=== PATIENT | female | born 1945 | race Caucasian/White ===

== ENCOUNTER 2023-11-28 05:55 | Inpatient (IN) | payer OTHER, SELFPAY ==
[2023-11-20 10:15] LABS: Hematocrit 39.8 % (37.0-47.0); Hemoglobin 13.9 g/dL (12.0-16.0); Mean Corp Hgb Conc. 34.9 g/dL (33.0-37.0); Mean Corpuscular Volume 88.8 fL (81.0-99.0); Mean Platelet Volume 10.6 fL (7.4-10.4); Platelet Count 247 10^3/uL (130-400); Red Blood Cell Count 4.48 10^6/uL (4.20-5.40); Red Cell Dist. Width 12.9 % (11.5-14.5)
[2023-11-20 11:14] LABS: ALT (SGPT) 23 U/L (0-35); AST (SGOT) 26 U/L (14-36); Albumin 4.3 g/dl (3.5-5.0); Alkaline Phosphatase 78 U/L (38-126); Blood Urea Nitrogen 10 mg/dl (7-17); Calcium 9.5 mg/dl (8.4-10.2); Carbon Dioxide 24 mmol/L (22-30); Chloride 96 mmol/L (98-107); Glucose 93 mg/dl (70-99); Potassium 4.6 mmol/L (3.5-5.1); Sodium 130 mmol/L (135-145); Total Bilirubin 0.8 mg/dl (0.2-1.3); Total Protein 7.1 g/dl (6.3-8.2); eGFR > 60.00
[2023-11-20 12:45] VITALS: BMI 26.0
[2023-11-20 13:16] LABS: Glycohemoglobin (HgbA1c) 6.1 % (4.0-5.6)
[2023-11-28] VITALS (14 sets, daily range): BP systolic 135–166; BP diastolic 56–94; BMI 26.0
[2023-11-28] MEDS: HEPARIN 5000 UNITS SC (06:25)
[2023-11-28] MEDS: TYLENOL 1000 MG PO (06:25)
[2023-11-28] MEDS: ENTEREG 12 MG PO (06:25)
[2023-11-28] MEDS: NORMOSOL-R 1000 IV ×2 (06:51→16:02)
--- NOTE | 2023-11-28 14:16 | W.IMMPOSTOP ---
Surgical Immed Post Op Note
-
Primary Surgeon: Yosi Tong MD
Adolfo Courtney MD
Assistants: NORMA Ceron and Kayce Katz PA-C
Pre-op Diagnosis: Colovaginal fistula
Post-op Diagnosis: Same
Procedure Performed: Cystoscopy with bilateral ureteral stents with ICG, Robotic low anterior resection with diverting loop ileostsomy
Anesthesia Type: GET
Specimen / Cultures: Rectum (suture is distal)
Estimated Blood Loss: 50cc
Complications: None
Operative Findings: Colovaginal fistula from previous anastomosis
Primary repair of vaginal cuff
28mm EEA
Normal leak test
Diverting loop ileostomy
Patient's updated.
[2023-11-28] MEDS: INVANZ IV (14:54)
[2023-11-28] MEDS: TORADOL 15 MG IV ×2 (15:03→21:43)
[2023-11-28] MEDS: DILAUDID 0.25 MG IV (15:40)
--- NOTE | 2023-11-28 16:15 | PTCARENOTE ---
Patient received from PACU in bed; Surgical site assessed with FIRST COAT OPERATOR, 4 lap sites AMPOULE FILLER AND SEALER with glue; Ileostomy site assessed, stoma pink with sanguineous output; Graham in place; Patient and spouse oriented to room and unit, call rosen use; Call rosen
within reach; Bed in lowest position, wheels locked; Assessment ongoing
[2023-11-28] MEDS: TYLENOL PO (17:24)
[2023-11-28] MEDS: TYLENOL 650 MG PO (19:43)
[2023-11-28] MEDS: INDERAL 20 MG PO (19:43)
[2023-11-28] MEDS: LIPITOR 10 MG PO (21:43)
[2023-11-29] MEDS: TYLENOL PO ×2 (01:15→23:56)
[2023-11-29] MEDS: NORMOSOL-R 1000 IV ×3 (02:00→19:56)
[2023-11-29] MEDS: TYLENOL 650 MG PO ×5 (03:03→19:56)
[2023-11-29] MEDS: TORADOL 15 MG IV ×4 (03:03→21:30)
[2023-11-29 03:30] VITALS: BP 143/79
[2023-11-29 06:21] LABS: % Basophils 0.6 % (0-2); % Eosinophils 0.9 % (0-6); % Immature Granulocytes 0.5 % (0-0.5); % Lymphocytes 10.1 % (20.5-51.1); % Neutrophils 81.9 % (42.2-75.2); Absolute Basophils 0.1 10^3/uL (0-0.2); Absolute Eosinophils 0.1 10^3/uL (0-0.7); Absolute Immature Granulocytes 0.1 10^3/uL (0-0.05); Absolute Lymphocytes 1.3 10^3/uL (1.2-3.4); Absolute Monocytes 0.8 10^3/uL (0.1-0.6); Absolute Neutrophils 10.6 10^3/uL (1.4-6.5); Hemoglobin 10.5 g/dL (12.0-16.0); Mean Corp Hgb Conc. 37.5 g/dL (33.0-37.0); Mean Corpuscular Hgb 31.5 pg (27.0-31.0); Mean Corpuscular Volume 84.1 fL (81.0-99.0); Nucleated Red Blood Cells % 0 %; Red Blood Cell Count 3.33 10^6/uL (4.20-5.40)
[2023-11-29 06:47] LABS: Blood Urea Nitrogen 16 mg/dl (7-17); Calcium 7.7 mg/dl (8.4-10.2); Carbon Dioxide 20 mmol/L (22-30); Chloride 101 mmol/L (98-107); Estimated Creatinine Clearance 53 ml/min; Glucose 130 mg/dl (70-99); Potassium 3.3 mmol/L (3.5-5.1); Sodium 130 mmol/L (135-145); eGFR > 60.00
[2023-11-29 06:51] LABS: Absolute Neutrophils -Man Diff 11.3 10^3/uL (1.4-6.5); Band Neutrophils 30 % (0-3); Lymphocytes 10 % (20-51); Mean Platelet Volume 10.6 fL (7.4-10.4); Monocytes 3 % (2-9); Normal RBC Morphology Yes; Platelet Count 231 10^3/uL (130-400); Platelets Checked Yes; Segmented Neutrophils 57 % (42-75); Total Cells Counted 100; Toxic Granulation 1+
[2023-11-29 07:08] VITALS: BP 130/51
[2023-11-29] MEDS: KCL IV (07:45)
[2023-11-29] MEDS: ENTEREG PO (08:11)
[2023-11-29] MEDS: INDERAL 20 MG PO ×2 (08:11→19:56)
[2023-11-29] MEDS: INVANZ IV (08:16)
[2023-11-29] MEDS: INVANZ 60 MG IV (09:04)
[2023-11-29] MEDS: KCL 270 MEQ IV (09:37)
[2023-11-29] MEDS: ENTEREG 12 MG PO ×2 (09:38→19:56)
--- NOTE | 2023-11-29 11:02 | CM ---
Patient seen bedside, initial assessment completed. Patient reports she resides with her in a two story home, no steps to enter. Patient reports having a stair climb, walker, and cane. Patient reports history with [facility], denies SNF.
Patient confirms PCP Zandra Farah, pharmacy [facility] [place]. CM will continue to follow for discharge planning needs.
Plan; home no needs vs VN.
[2023-11-29 12:00] VITALS: BP 116/57
--- NOTE | 2023-11-29 12:08 | W.PN.CRS1 ---
Today's Communication / Plan
-
Clear liquids
Pain control
Mobilize patient
Assessment/Plan
-
77 yo female presenting for management of colovaginal fistula now POD #1 Robotic LAR, resection and closure of original ostomy with diverting loop ileostomy
AFVSS
Mild acute blood loss anemia secondary to expected intraop losses with component of hemodilution
Hypokalemia
Stent removed at bedside, crow remains in place
-H/H this afternoon with bmp/cbc in am
-Start clear liquids
-Stoma/wound nurse consult
-Pain management with scheduled tylenol/toradol and prn dilaudid
-OOB/Ambulate. IS while awake
-Both stents now out. Continue crow, VT in am
-SCD's for vte ppx. Will start lovenox 40mg sq daily if h/h remains stable this afternoon
Subjective Data
Procedure
11/28/23
1. Cystoscopy, bilateral ureteral stents and ICG by Dr. Courtney.
2. Resection and closure of ileostomy.
3. Robotic low anterior resection with intracorporeal anastomosis.
4. Diverting loop ileostomy.
�
Subjective Data
Date of Service: November 29, 2023
Patient seen and examined at bedside with Dr Tong. Denies n/v. Denies pain. Not yet passing flatus.
Objective Data
-
Vital Signs
Temp Pulse Resp BP Pulse Ox
99.1 F 80 16 130/51 95
11/29/23 07:08 11/29/23 08:11 11/29/23 07:08 11/29/23 08:11 11/29/23 07:08
Intake & Output
11/28/23 11/29/23 11/30/23
06:59 06:59 06:59
Intake Total 1650 / 1650
Output Total 985 / 985
Balance 665 / 665
Intake:
IV fluids (Total) 1650 / 1650
Normosol 150 / 150
Output:
Urine, Crow 925 / 925
Urine, Voided 60 / 60
Lab Results
11/29/23 05:07
Physical Exam
-
General: No Acute Distress
HEENT: Grossly Normal
Abdomen: Soft, Non Distended, Tender (minimal to incision), No Bowel Movement (stoma pink/viable. bowel sweat/minimal ssf in ostomy appliance) and Other (crow with tea colored urine, removed stent)
Skin: Warm
Incision: Clear, Dry, Intact (glue intact)
[2023-11-29 13:51] LABS: Hematocrit 27.2 % (37.0-47.0)
[2023-11-29 15:58] VITALS: BP 127/53
[2023-11-29] MEDS: ZOFRAN 4 MG IV (16:42)
[2023-11-29] MEDS: LOVENOX 40 MG SC (17:16)
--- NOTE | 2023-11-29 20:30 | PTCARENOTE ---
pt vomited moderate amount of green liquid. had immediate relief of any prior acid reflux symptoms or nausea afterwards. patient cleaned up and returned back to bed. resting comfortably and denied need for any other medications or interventions at
this time.
[2023-11-29] MEDS: LIPITOR PO (21:33)
[2023-11-29 23:10] VITALS: BP 120/56
[2023-11-29 23:58] VITALS: BP 120/56
[2023-11-30] MEDS: ZOFRAN 4 MG IV ×4 (01:04→19:55)
--- NOTE | 2023-11-30 02:25 | PTCARENOTE ---
Addendum entered by Yanet Blackwell RN 11/30/23 02:37:
patient's abdomen is soft, round, bowel sounds present in all quadrants, R side hypo active. small amount of bloody drainage present in ileostomy bag. patient has only sipped on about 200 ml water since beginning of mold shifter but states she had 2
cups tea, broth and water during the day. pt currently resting comfortably in bed with no c/o of nausea now and no pain.
Original Note:
patient c/o of acid reflux again at 0100, HOB and patient given IV zofran. At 0220 patient woke from sleep and vomited green liquid again, 450 ml.
[2023-11-30] MEDS: TORADOL 15 MG IV ×3 (03:10→21:39)
[2023-11-30] MEDS: TYLENOL PO ×5 (04:20→19:58)
[2023-11-30 06:37] LABS: Hematocrit 24.6 % (37.0-47.0); Hemoglobin 8.8 g/dL (12.0-16.0); Mean Corp Hgb Conc. 35.8 g/dL (33.0-37.0); Mean Corpuscular Hgb 31.4 pg (27.0-31.0); Mean Corpuscular Volume 87.9 fL (81.0-99.0); Mean Platelet Volume 10.4 fL (7.4-10.4); Platelet Count 206 10^3/uL (130-400); Red Cell Dist. Width 13.1 % (11.5-14.5); White Blood Cell Count 13.5 10^3/uL (4.8-10.8)
[2023-11-30 06:57] LABS: Blood Urea Nitrogen 18 mg/dl (7-17); Calcium 8.1 mg/dl (8.4-10.2); Carbon Dioxide 30 mmol/L (22-30); Chloride 96 mmol/L (98-107); Glucose 120 mg/dl (70-99); Magnesium 1.9 mg/dl (1.6-2.3); Potassium 3.4 mmol/L (3.5-5.1); Sodium 130 mmol/L (135-145)
[2023-11-30 07:02] LABS: Estimated Creatinine Clearance 62 ml/min; eGFR > 60.00
[2023-11-30 07:10] VITALS: BP 132/57
[2023-11-30] MEDS: INVANZ 60 MG IV (08:15)
[2023-11-30] MEDS: TORADOL IV (08:16)
[2023-11-30] MEDS: ENTEREG 12 MG PO ×2 (08:19→19:54)
[2023-11-30] MEDS: INDERAL 20 MG PO ×2 (08:19→19:55)
[2023-11-30] MEDS: NORMOSOL-R 1000 IV (10:51)
--- NOTE | 2023-11-30 11:10 | W.PN.CRS1 ---
Today's Communication / Plan
-
potassium rider
protonix
back down to npo with chips
recheck h/h later
Assessment/Plan
-
POD #2�Robotic LAR, resection and closure of original ostomy with diverting loop ileostomy
1. Hgb 8.8 from 10.0 - trend. Repeat later today. WBC 13.5 from 13.0, trend. On Invanz.
2. Vitals normal.
3. Back diet down to NPO with chips.
4. Hypokalemia with K of 3.4. Replete.
5. OOB as tolerated.
6. Wound RN for stoma teaching.
7. Pain medication: Tylenol/Toradol standing, Dilaudid PRN.
8. Voiding post crow removal.
9. DVT prophylaxis: Lovenox 40mg sq daily, TEDS/SCDS.
10. Add protonix IV for acid reflux.
11. OR pathology pending.
Subjective Data
Procedure
11/28/23
1. Cystoscopy, bilateral ureteral stents and ICG by Dr. Courtney.
2. Resection and closure of ileostomy.
3. Robotic low anterior resection with intracorporeal anastomosis.
4. Diverting loop ileostomy.
�
Subjective Data
Date of Service: November 30, 2023
Patient states she had a 'bad night'. She was nauseous and then vomited after drinking some donis all. She has not had any bowel movements yet. She has acid reflux.
Objective Data
-
Vital Signs
Temp Pulse Resp BP Pulse Ox
99.5 F 83 18 132/57 95
11/30/23 07:10 11/30/23 07:10 11/30/23 07:10 11/30/23 07:10 11/30/23 08:00
Intake & Output
11/29/23 11/30/23 12/01/23
06:59 06:59 06:59
Intake Total 1650 / 1650 2620 / 2620
Output Total 985 / 985 1300 / 1300
Balance 665 / 665 1320 / 1320
Intake:
Oral fluids 1260 / 1260
IV fluids (Total) 1650 / 1650 1360 / 1360
Normosol 150 / 150
Output:
Emesis 450 / 450
Urine, Crow 925 / 925 850 / 850
Urine, Voided 60 / 60
Other:
Number of immeasurable emeses? 1
Number of unmeasured liquid
stools
Ileostomy 50
Lab Results
11/30/23 05:10
11/30/23 05:10
Physical Exam
-
General: No Acute Distress and AOx3
Abdomen: Soft, Non Distended, Non Tender and Other (ileostomy warm and pink)
Skin: Warm and Dry
[2023-11-30] MEDS: COMPAZINE 5 MG PO ×3 (11:48→23:09)
[2023-11-30] MEDS: NSS 1000 IV (11:50)
[2023-11-30] MEDS: NSS (PRESERVATIVE FREE) 10 ML IV (11:53)
[2023-11-30] MEDS: KCL 160 MEQ IV (11:54)
[2023-11-30] MEDS: PROTONIX IV 40 MG IV (11:54)
[2023-11-30 13:16] LABS: Hematocrit 25.3 % (37.0-47.0); Hemoglobin 8.9 g/dL (12.0-16.0)
[2023-11-30 15:10] VITALS: BP 127/55
[2023-11-30] MEDS: LOVENOX 40 MG SC (17:11)
[2023-11-30] MEDS: DILAUDID 0.5 MG IV (19:54)
[2023-11-30] MEDS: LIPITOR PO (21:39)
[2023-11-30 22:58] VITALS: BP 137/59
[2023-12-01] MEDS: TYLENOL PO ×7 (00:14→23:16)
--- NOTE | 2023-12-01 01:30 | PTCARENOTE ---
pt ileostomy is having green drainage. ostomy dressing intact.
[2023-12-01] MEDS: NSS 1000 IV ×2 (03:17→22:25)
[2023-12-01] MEDS: ZOFRAN 4 MG IV (03:18)
[2023-12-01] MEDS: TORADOL 15 MG IV ×4 (03:18→20:41)
[2023-12-01 05:16] LABS: % Basophils 0.2 % (0-2); % Eosinophils 0.3 % (0-6); % Immature Granulocytes 1.2 % (0-0.5); % Lymphocytes 11.6 % (20.5-51.1); % Neutrophils 80.7 % (42.2-75.2); Absolute Immature Granulocytes 0.1 10^3/uL (0-0.05); Absolute Lymphocytes 1.4 10^3/uL (1.2-3.4); Absolute Monocytes 0.7 10^3/uL (0.1-0.6); Absolute Neutrophils 9.6 10^3/uL (1.4-6.5); Hematocrit 23.7 % (37.0-47.0); Hemoglobin 8.3 g/dL (12.0-16.0); Mean Corpuscular Volume 88.4 fL (81.0-99.0); Mean Platelet Volume 10.4 fL (7.4-10.4); Nucleated Red Blood Cells % 0 %; Platelet Count 176 10^3/uL (130-400); Red Blood Cell Count 2.68 10^6/uL (4.20-5.40); Red Cell Dist. Width 12.9 % (11.5-14.5); White Blood Cell Count 11.9 10^3/uL (4.8-10.8)
[2023-12-01 05:42] LABS: Blood Urea Nitrogen 11 mg/dl (7-17); Calcium 8.1 mg/dl (8.4-10.2); Carbon Dioxide 27 mmol/L (22-30); Chloride 100 mmol/L (98-107); Estimated Creatinine Clearance 61 ml/min; Glucose 98 mg/dl (70-99); Potassium 2.9 mmol/L (3.5-5.1); Sodium 133 mmol/L (135-145); eGFR > 60.00
[2023-12-01] MEDS: COMPAZINE 5 MG PO (05:59)
[2023-12-01] MEDS: DILAUDID 0.5 MG IV (06:43)
[2023-12-01 07:10] VITALS: BP 144/63
[2023-12-01] MEDS: KCL 270 MEQ IV (07:53)
[2023-12-01] MEDS: NSS (PRESERVATIVE FREE) 10 ML IV (08:11)
[2023-12-01] MEDS: PROTONIX IV 40 MG IV (08:11)
[2023-12-01] MEDS: ENTEREG 12 MG PO ×2 (08:12→19:40)
[2023-12-01] MEDS: INDERAL 20 MG PO ×2 (08:12→19:40)
--- NOTE | 2023-12-01 11:13 | W.PN.CRS1 ---
Today's Communication / Plan
-
Advance diet
Replete potassium, recheck BMP later
Assessment/Plan
-
POD #3�Robotic LAR, resection and closure of original ostomy with diverting loop ileostomy
1. Hgb 8.3 from 8.9- trend. WBC 11.9 from 13.5, trend. On Invanz.
2. Vitals normal.
3. Advance diet to clears. Okay for fulls later today if tolerates clears.
4. Hypokalemia with K of 2.9. Replete. Will recheck BMP later today.
5. OOB as tolerated.
6. Wound RN for stoma teaching.
7. Pain medication: Tylenol/Toradol standing, Dilaudid PRN.
8. DVT prophylaxis: Lovenox 40mg sq daily, TEDS/SCDS.
9. On Protonix IV for acid reflux.
10. OR pathology pending.
11. Holding Eliquis for now
Subjective Data
Procedure
11/28/23
1. Cystoscopy, bilateral ureteral stents and ICG by Dr. Courtney.
2. Resection and closure of ileostomy.
3. Robotic low anterior resection with intracorporeal anastomosis.
4. Diverting loop ileostomy.
�
Subjective Data
Date of Service: December 01, 2023
Patient states she has no nausea or vomiting. She feels thirsty. She is having some gas pain. She is urinating without difficulty. She has some scant output from her ileostomy.
Objective Data
-
Vital Signs
Temp Pulse Resp BP Pulse Ox
97.5 F 70 18 144/63 96
12/01/23 07:10 12/01/23 07:10 12/01/23 07:10 12/01/23 07:10 12/01/23 07:10
Intake & Output
11/30/23 12/01/23 12/02/23
06:59 06:59 06:59
Intake Total 2620 / 2620 2009
Output Total 1300 / 1300 695 / 695
Balance 1320 / 1320 1315 / 1315
Intake:
Oral fluids 1260 / 1260 30 / 30
IV fluids (Total) 1360 / 1360 1760 / 1760
IV piggybacks 220 / 220
Output:
Emesis 450 / 450
Liquid stool amount 225 / 225
Ileostomy 225 / 225
Urine, Graham 850 / 850
Urine, Voided 470 / 470
Other:
Number of approximated MODERATE 3
amounts of urine
Number of immeasurable emeses? 1
Number of unmeasured liquid
stools
Ileostomy 50
Lab Results
12/01/23 04:42
Physical Exam
-
General: No Acute Distress and AOx3
Abdomen: Soft, Non Distended, Non Tender and Other (Ileostomy warm and pink with serous output)
Skin: Warm and Dry
Incision: Clear, Dry, Intact
--- NOTE | 2023-12-01 11:22 | WOUNDNOTE ---
ROLO RN NOTE: S/P Repair of Colovaginal fistula from previous ileostomy anastomosis. Patient known to service, last seen 03/24/23 after original ileostomy, see computer for complete history. RLQ new loop ileostomy, stoma pink with intact bridge, no
leakage from appliance. Using Asmita 2 piece with 2 3/4' flat wafer and high output pouch. Patient reports she is independent with care of ostomy, called to bring in supplies. Instructed patient to ask staff for assistance if having
difficulty navigating around bridge. Nurse Darlin made aware of the above and that pouch change is due either later today or tomorrow. Patient able to turn to sides, sacrum and heels are intact. Patient states she gets up and ambulates on own. Will
update care plan and follow as needed.
[2023-12-01 15:05] VITALS: BP 130/54
--- NOTE | 2023-12-01 16:15 | CM ---
Resection and closure of original ostomy with diverting loop ileostomy. Clear liquids. Will await therapy evaluation for discharge plan of care.
[2023-12-01 16:40] LABS: Blood Urea Nitrogen 11 mg/dl (7-17); Calcium 8.2 mg/dl (8.4-10.2); Carbon Dioxide 26 mmol/L (22-30); Chloride 101 mmol/L (98-107); Estimated Creatinine Clearance 61 ml/min; Glucose 119 mg/dl (70-99); Potassium 3.4 mmol/L (3.5-5.1); Sodium 131 mmol/L (135-145); eGFR > 60.00
[2023-12-01] MEDS: LOVENOX 40 MG SC (17:19)
[2023-12-01] MEDS: TYLENOL 650 MG PO (19:39)
[2023-12-01] MEDS: LIPITOR PO ×2 (20:41→23:00)
[2023-12-01 23:07] VITALS: BP 137/51
[2023-12-02] MEDS: DILAUDID 0.5 MG IV ×2 (00:17→21:44)
[2023-12-02] MEDS: TYLENOL PO ×4 (03:15→17:00)
[2023-12-02] MEDS: TORADOL 15 MG IV ×4 (03:15→21:44)
[2023-12-02 05:11] VITALS: BMI 26.7
[2023-12-02 05:58] LABS: Hematocrit 23.9 % (37.0-47.0); Hemoglobin 8.4 g/dL (12.0-16.0); Mean Corp Hgb Conc. 35.1 g/dL (33.0-37.0); Mean Corpuscular Hgb 31.5 pg (27.0-31.0); Mean Corpuscular Volume 89.5 fL (81.0-99.0); Mean Platelet Volume 10.4 fL (7.4-10.4); Platelet Count 204 10^3/uL (130-400); Red Blood Cell Count 2.67 10^6/uL (4.20-5.40); Red Cell Dist. Width 12.8 % (11.5-14.5); White Blood Cell Count 11.5 10^3/uL (4.8-10.8)
[2023-12-02 06:29] LABS: Blood Urea Nitrogen 10 mg/dl (7-17); Calcium 8.1 mg/dl (8.4-10.2); Carbon Dioxide 24 mmol/L (22-30); Chloride 97 mmol/L (98-107); Estimated Creatinine Clearance 69 ml/min; Glucose 87 mg/dl (70-99); Potassium 2.9 mmol/L (3.5-5.1); Sodium 131 mmol/L (135-145); eGFR > 60.00
[2023-12-02 07:44] VITALS: BP 140/54
[2023-12-02] MEDS: KCL 270 MEQ IV (08:58)
[2023-12-02] MEDS: ENTEREG 12 MG PO ×2 (08:59→20:30)
[2023-12-02] MEDS: PROTONIX IV 40 MG IV (08:59)
[2023-12-02] MEDS: TYLENOL 650 MG PO ×2 (08:59→20:29)
[2023-12-02] MEDS: INDERAL 20 MG PO ×2 (08:59→20:30)
[2023-12-02] MEDS: NSS (PRESERVATIVE FREE) 10 ML IV (08:59)
[2023-12-02] MEDS: FLUSH (NSS) 2 FLUSH IV ×2 (09:00→17:02)
--- NOTE | 2023-12-02 10:48 | W.PN.CRS1 ---
Addendum entered and electronically signed by Chuy Bobby MD 12/02/23 10:57:
I saw and examined the patient.
The PA's note was reviewed and I agree with the note.
Comment:
Seen earlier with PA.
No complaints. Tolerating fulls.
Vitals ok. Hg 8.4. K 2.9.
Abdominal incisions fine.
Diet advanced.
OOB.
Replace K.
Original Note:
Today's Communication / Plan
-
low residue diet
Assessment/Plan
-
POD #4�Robotic LAR, resection and closure of original ostomy with diverting loop ileostomy
1. Hgb 8.4- trend. WBC 11.5, monitor.
2. Vitals normal.
3. Advance diet to low residue.
4. Hypokalemia with K of 2.9. Replete.
5. OOB as tolerated.
6. Wound RN for stoma teaching.
7. Pain medication: Tylenol/Toradol standing, Dilaudid PRN.
8. DVT prophylaxis: Lovenox 40mg sq daily, TEDS/SCDS.
9. On Protonix IV for acid reflux.
10. OR pathology pending.
Subjective Data
Procedure
11/28/23
1. Cystoscopy, bilateral ureteral stents and ICG by Dr. Courtney.
2. Resection and closure of ileostomy.
3. Robotic low anterior resection with intracorporeal anastomosis.
4. Diverting loop ileostomy.
�
Subjective Data
Date of Service: December 02, 2023
Patient states she has flatus. She has no abdominal pain. She is hungry. She has no complaints.
Objective Data
-
Vital Signs
Temp Pulse Resp BP Pulse Ox
98.8 F 78 18 140/54 98
03/26/24 07:44 12/02/23 07:44 12/02/23 07:44 12/02/23 07:44 12/02/23 07:44
Intake & Output
12/01/23 12/02/23 12/03/23
06:59 06:59 06:59
Intake Total 2009 3890 / 3890
Output Total 695 / 695
Balance 1315 / 1315 3890 / 3890
Intake:
Oral fluids 30 / 30 2340 / 2340
IV fluids (Total) 1760 / 1760 1280 / 1280
IV piggybacks 220 / 220 270 / 270
Output:
Liquid stool amount 225 / 225
Ileostomy 225 / 225
Urine, Voided 470 / 470
Other:
Number of approximated MODERATE 3 5
amounts of urine
Lab Results
12/02/23 04:50
12/02/23 04:50
Physical Exam
-
General: No Acute Distress and AOx3
Abdomen: Soft, Non Distended and Non Tender
Wound: No Signs of Infection
Incision: Clear, Dry, Intact
--- NOTE | 2023-12-02 12:06 | CM ---
Patient seen bedside.
Patient had Jing in the past.
Patient denies VN needs at this time.
Per patient she is able to care for her colostomy and is ambulating independently.
IMM completed.
Spouse will transport.
Plan: home no needs.
[2023-12-02 15:21] VITALS: BP 146/69
[2023-12-02] MEDS: LOVENOX 40 MG SC (17:01)
[2023-12-02] MEDS: LIPITOR 10 MG PO (21:43)
[2023-12-02 23:15] VITALS: BP 128/57
[2023-12-03] MEDS: TYLENOL PO ×3 (00:33→08:40)
[2023-12-03] MEDS: TORADOL 15 MG IV ×2 (03:41→08:39)
[2023-12-03 04:05] VITALS: BMI 26.5
[2023-12-03] MEDS: DILAUDID 0.5 MG IV (04:36)
[2023-12-03 07:46] VITALS: BP 133/58
[2023-12-03 08:23] LABS: Blood Urea Nitrogen 9 mg/dl (7-17); Calcium 8.1 mg/dl (8.4-10.2); Carbon Dioxide 26 mmol/L (22-30); Chloride 100 mmol/L (98-107); Estimated Creatinine Clearance 61 ml/min; Glucose 116 mg/dl (70-99); Sodium 129 mmol/L (135-145); eGFR > 60.00
[2023-12-03] MEDS: INDERAL 20 MG PO (08:38)
[2023-12-03] MEDS: ENTEREG 12 MG PO (08:38)
[2023-12-03] MEDS: NSS (PRESERVATIVE FREE) 10 ML IV (08:39)
[2023-12-03] MEDS: PROTONIX IV 40 MG IV (08:39)
--- NOTE | 2023-12-03 09:15 | W.PN.CRS1 ---
Today's Communication / Plan
-
discharge
Assessment/Plan
-
POD #5�Robotic LAR, resection and closure of original ostomy with diverting loop ileostomy
1. K+ is 3.0 this morning. Will replete with 40meq po x 1.
2. Vitals normal.
3. Tolerating a low residue diet.
4. OOB as tolerated.
5. Wound RN for stoma teaching.
6. Pain medication: Tylenol/Toradol standing, Dilaudid PRN.
7. DVT prophylaxis: Lovenox 40mg sq daily, TEDS/SCDS.
8. On Protonix IV for acid reflux.
9. OR pathology pending.
10. Okay for discharge today after K+ is given. Discharge instructions discussed with patient including medications, activity levels, and follow up. All questions answered.
Subjective Data
Procedure
11/28/23
1. Cystoscopy, bilateral ureteral stents and ICG by Dr. Courtney.
2. Resection and closure of ileostomy.
3. Robotic low anterior resection with intracorporeal anastomosis.
4. Diverting loop ileostomy.
�
Subjective Data
Date of Service: December 03, 2023
Patient states she feels well. She is tolerating a diet. She has bowel function. She is managing with her colostomy. She denies pain.
Objective Data
-
Vital Signs
Temp Pulse Resp BP Pulse Ox
98.2 F 69 17 133/58 97
12/03/23 07:46 12/03/23 07:46 12/03/23 07:46 12/03/23 07:46 12/03/23 07:46
Intake & Output
12/02/23 12/03/23 12/04/23
06:59 06:59 06:59
Intake Total 3890 / 3890 1710 / 1710
Output Total 100 / 100
Balance 3890 / 3890 1610 / 1610
Intake:
Oral fluids 2340 / 2340 1440 / 1440
IV fluids (Total) 1280 / 1280 0 / 0
IV piggybacks 270 / 270 270 / 270
Output:
Liquid stool amount 100 / 100
Ileostomy 100 / 100
Other:
Number of approximated MODERATE 5 2
amounts of urine
Lab Results
12/02/23 04:50
12/03/23 07:48
Physical Exam
-
General: No Acute Distress and AOx3
Abdomen: Soft, Non Distended, Non Tender and Other (colostomy warm and pink with function)
Skin: Warm and Dry
Incision: Clear, Dry, Intact
--- NOTE | 2023-12-03 09:25 | W.DS.TRANS ---
DC Summary - Sales Closer
-
Discharge Instructions:
Sleep Apnea Risk Low
Discharge Diagnosis/Procedures Robotic LAR, resection and closure of original
ostomy with diverting loop ileostomy
Diet Low Residue
Activity No strenuous activity
Additional Activity No lifting over 10lbs (gallon of milk)
Driving Restrictions No driving for 1 week
Bathing Restrictions OK to Shower
Blood Work BMP in one week
Wound Care Allow glue to naturally fall off. Do not pick at
incisions. Okay to shower.
Instructions: Low Fiber Diet
Stand-Alone Forms:
Changes to Home Medications: Yes
Discharge Medications:
DC Medications w/original date entered in [facility]
cholecalciferol (vitamin D3) 50 mcg (2,000 unit) tablet (Vitamin D3) 4,000 unit PO DAILY Supplement 03/20/23
magnesium oxide 400 mg PO DAILY Supplement 03/20/23
midodrine 2.5 mg tablet 2.5 mg PO PRN PRN low blood pressure 03/20/23
potassium chloride 20 mEq oral packet (Klor-Con) 20 meq PO DAILY Electrolyte Repletion 03/20/23
propranolol 20 mg tablet 20 mg PO BID Blood Pressure 03/20/23
atorvastatin 20 mg tablet 20 mg PO HS High Cholesterol 11/24/23
tramadol 50 mg tablet 50 mg PO Q6H PRN Pain #20 tabs 12/02/23
Home Medication Changes
tramadol 50 mg tablet 50 mg PO Q6H PRN Pain #20 tabs 12/02/23
Pending Results: Yes
Additional Pending Results:
OR pathology
[2023-12-03] MEDS: KCL 40 MEQ PO (09:29)
--- NOTE | 2023-12-03 09:53 | CM ---
Patient has been medically cleared for discharge to home with no additional skilled services. will transport home.
--- NOTE | 2023-12-17 10:31 | W.DCSUMMARY ---
Discharge Summary
Discharge Data
Date of Admission: 11/28/23
Date of Discharge: 12/03/23
-
Pending Results: Yes
Additional Pending Results:
OR pathology
Hospital Course
78-year-old female presented for a scheduled robotic low anterior resection with diverting loop ileostomy due to a colovaginal fistula on 11/28/[address] Yosi Tong. The patient tolerated the procedure well and was brought back to the
medical surgical floor. On postop day 1 she was started on a clear liquid diet. A ureter stent which was placed intraoperatively was removed. Lovenox was started for DVT prophylaxis on postop day 2 due to vomiting overnight she was kept n.p.o. on
postop day 3 she had no further overnight events and her nausea and vomiting improved and she had ostomy function. Her diet was advanced to full liquids. On postop day 4 her diet was advanced to low residue. She did have hypokalemia throughout
her stay and her potassium was repleted several times. On postop day 5 it was determined the patient can be discharged home. Her ostomy had function and she had no abdominal pain. She does have chronically low potassium and this was to be
followed up as an outpatient her medications diet and activity were reviewed. All questions were answered.
Discharge Plan
-
Patient Disposition: Home (Routine Discharge)
Discharge Diagnosis/Procedures: Robotic LAR, resection and closure of original ostomy with diverting loop ileostomy
Diet: Low Residue
Activity: No strenuous activity
Additional Activity: No lifting over 10lbs (gallon of milk)
Driving Restrictions: No driving for 1 week
Bathing Restrictions: OK to Shower
Blood Work: BMP in one week
Wound Care: Allow glue to naturally fall off. Do not pick at incisions. Okay to shower.
Instructions: Low Fiber Diet
Referrals:
Jimmy Tong MD [Active] - in two weeks
Zandra Brown MD [Family Provider] - in one week
Prescriptions:
New
tramadol 50 mg tablet
50 mg PO Q6H PRN (Reason: Pain) Qty: 20 0RF
Continued
potassium chloride [Klor-Con] 20 mEq Packet
20 meq PO DAILY
midodrine 2.5 mg Tablet
2.5 mg PO PRN PRN (Reason: low blood pressure)
Patient Comments:
patient has not taken it for a while she has not needed it
Rx Instructions:
take as needed
propranolol 20 mg Tablet
20 mg PO BID
cholecalciferol (vitamin D3) [Vitamin D3] 50 mcg (2,000 unit) Tablet
4,000 unit PO DAILY
magnesium oxide 400 mg magnesium Tablet
400 mg PO DAILY
atorvastatin 20 mg Tablet
20 mg PO HS
Discharge Orders:
Discharge Patient (As Directed); Ordered 12/03/23
Ordered By: Maryam Barbosa
Discharge Date and Time
Discharge Date/Time: 12/03/23 11:32
Print Language: DANISH
== END 2023-12-03 11:32 | disposition home or self-care (01) | DRG 330 ==
LOC: 2 SOUTH 05:55
PROVIDERS: Physician Assistant; Registered Nurse; Specialist; ADMITTING PHYSICIAN Surgery; FAMILY PHYSICIAN Family Medicine
PROC: 0DBP4ZZ Excision of Rectum, Percutaneous Endoscopic Approach (ICD-10-PCS; 2023-11-28)
PROC: 0UQG4ZZ Repair Vagina, Percutaneous Endoscopic Approach (ICD-10-PCS; 2023-11-28)
PROC: 0DBB4ZZ Excision of Ileum, Percutaneous Endoscopic Approach (ICD-10-PCS; 2023-11-28)
PROC: 0T788DZ Dilation of Bilateral Ureters with Intraluminal Device, Via Natural or Artificial Opening Endoscopic (ICD-10-PCS; 2023-11-28)
PROC: 8E0W4CZ Robotic Assisted Procedure of Trunk Region, Percutaneous Endoscopic Approach (ICD-10-PCS; 2023-11-28)
PROC: 0D1B4Z4 Bypass Ileum to Cutaneous, Percutaneous Endoscopic Approach (ICD-10-PCS; 2023-11-28)
DX: N82.3 Fistula of vagina to large intestine (principal); D62 Acute posthemorrhagic anemia; N13.30 Unspecified hydronephrosis; Z43.2 Encounter for attention to ileostomy; E87.6 Hypokalemia
CPT/HCPCS: 88307; 36415; 80048; 80053; 83036; 83735; 85014; 85018; 85025; 85027; 86850; 86900; 86901; A4300; J0585; J1335

== ENCOUNTER → 2024-02-12 09:01 | Outpatient (REF) | payer OTHER, SELFPAY | LOC: RAD 09:01 | PROVIDERS: ATTENDING PHYSICIAN Surgery; FAMILY PHYSICIAN Family Medicine | DX: Z48.89 Encounter for other specified surgical aftercare (principal) | CPT/HCPCS: 74280 ==

== ENCOUNTER 2024-03-12 08:00 | Inpatient (IN) | payer OTHER, SELFPAY ==
[2024-03-05 09:38] VITALS: BMI 24.8
[2024-03-05 09:57] LABS: Hematocrit 41.3 % (37.0-47.0); Hemoglobin 14.6 g/dL (12.0-16.0); Mean Corp Hgb Conc. 35.4 g/dL (33.0-37.0); Mean Corpuscular Hgb 30.2 pg (27.0-31.0); Mean Corpuscular Volume 85.3 fL (81.0-99.0); Mean Platelet Volume 10.1 fL (7.4-10.4); Platelet Count 270 10^3/uL (130-400); Red Blood Cell Count 4.84 10^6/uL (4.20-5.40); Red Cell Dist. Width 12.5 % (11.5-14.5); White Blood Cell Count 6.6 10^3/uL (4.8-10.8)
[2024-03-05 10:22] LABS: Blood Urea Nitrogen 18 mg/dl (7-17); Calcium 10.1 mg/dl (8.4-10.2); Carbon Dioxide 16 mmol/L (22-30); Chloride 102 mmol/L (98-107); Estimated Creatinine Clearance 55 ml/min; Glucose 108 mg/dl (70-99); Potassium 5.4 mmol/L (3.5-5.1); Sodium 130 mmol/L (135-145); eGFR > 60.00
[2024-03-12] VITALS (12 sets, daily range): BP systolic 88–144; BP diastolic 40–84; BMI 24.8
[2024-03-12] MEDS: TYLENOL 1000 MG PO (11:00)
[2024-03-12] MEDS: HEPARIN 5000 UNITS SC (11:01)
[2024-03-12] MEDS: NORMOSOL-R 1000 IV ×2 (11:27→23:02)
--- NOTE | 2024-03-12 15:21 | W.IMMPOSTOP ---
Surgical Immed Post Op Note
-
Primary Surgeon: Yosi Tong MD
Commercial Loan Closer: NORMA Anna
Pre-op Diagnosis: Ileostomy
Post-op Diagnosis: Same
Procedure Performed: Flexible sigmoidoscopy and resection & closure of ileostomy, incisional hernia repair
Anesthesia Type: GET
Specimen / Cultures: None
Estimated Blood Loss: 8cc
Complications: None
Operative Findings: Normal anastomosis on flexible sigmoidoscopy
Stapled functional end-to-end anastomosis
Primary closure of parastomal/incisional hernia
Patient's updated
[2024-03-12] MEDS: TORADOL 15 MG IV ×2 (15:49→22:58)
--- NOTE | 2024-03-12 16:54 | PTCARENOTE ---
Patient admitted from Pacu post resection with ileostomy closure and flexible sigmoidoscopy.The patient is alert and oriented.She rates her pain at a 3-4 oput of 10.The dressing on the right abdomen is intact with shadowing which is marked.A
Suffolk drain is present.Vital signs are stable.The patient is in her bed with the call rsoen in reach.
[2024-03-12] MEDS: TYLENOL 650 MG PO (20:17)
[2024-03-12] MEDS: INDERAL 20 MG PO (20:17)
[2024-03-12] MEDS: NORMOSOL-R IV (20:17)
[2024-03-12] MEDS: LIPITOR 20 MG PO (22:59)
[2024-03-12] MEDS: TYLENOL PO (23:56)
[2024-03-13 03:39] VITALS: BP 121/46
[2024-03-13] MEDS: TYLENOL PO (04:22)
[2024-03-13] MEDS: TORADOL IV (04:22)
[2024-03-13] MEDS: TYLENOL 650 MG PO ×5 (04:30→19:21)
[2024-03-13] MEDS: TORADOL 15 MG IV ×4 (04:30→22:02)
[2024-03-13] MEDS: NORMOSOL-R 1000 IV (04:31)
[2024-03-13 05:29] VITALS: BMI 24.5
[2024-03-13 06:00] VITALS: BMI 24.5
[2024-03-13 07:25] VITALS: BP 136/62
[2024-03-13 08:29] LABS: % Basophils 0.1 % (0-2); % Immature Granulocytes 0.4 % (0-0.5); % Lymphocytes 14.2 % (20.5-51.1); % Monocytes 4.8 % (1.7-9.3); % Neutrophils 80.5 % (42.2-75.2); Absolute Lymphocytes 1.3 10^3/uL (1.2-3.4); Absolute Monocytes 0.4 10^3/uL (0.1-0.6); Absolute Neutrophils 7.4 10^3/uL (1.4-6.5); Hematocrit 32.6 % (37.0-47.0); Hemoglobin 11.9 g/dL (12.0-16.0); Mean Corp Hgb Conc. 36.5 g/dL (33.0-37.0); Mean Corpuscular Volume 82.1 fL (81.0-99.0); Mean Platelet Volume 10.1 fL (7.4-10.4); Nucleated Red Blood Cells % 0 %; Platelet Count 204 10^3/uL (130-400); Red Blood Cell Count 3.97 10^6/uL (4.20-5.40); Red Cell Dist. Width 12.4 % (11.5-14.5); White Blood Cell Count 9.2 10^3/uL (4.8-10.8)
[2024-03-13 08:42] LABS: Blood Urea Nitrogen 13 mg/dl (7-17); Calcium 8.3 mg/dl (8.4-10.2); Carbon Dioxide 21 mmol/L (22-30); Chloride 98 mmol/L (98-107); Estimated Creatinine Clearance 65 ml/min; Glucose 104 mg/dl (70-99); Sodium 131 mmol/L (135-145); eGFR > 60.00
[2024-03-13] MEDS: INDERAL 20 MG PO ×2 (09:39→19:22)
[2024-03-13] MEDS: ENTEREG 12 MG PO ×2 (09:40→19:21)
[2024-03-13] MEDS: KCL 270 MEQ IV (09:41)
--- NOTE | 2024-03-13 09:56 | W.PN.GS2 ---
Addendum entered and electronically signed by Kamar Awan MD 03/13/24 13:44:
Patient seen and examined with BREAD ICER. Agree with documented progress note
Overall patient doing very well with her initial postoperative recovery. No postoperative pain.
AFVSS
ABD: Soft, nondistended, nontender other than minimally at incision site
Dressing removed, old blood on gauze but no active bleeding. New clean dressing applied.
A/P: POD #1 status post reversal ileostomy
Clear liquid diet and routine postoperative supportive care awaiting GI recovery
Original Note:
Today's Communication / Plan
-
Clear liquids
Electrolyte correction
Void trial
Assessment / Plan
-
78 yo female with h/o colovaginal fistula s/p robotic LAR and diverting ileostomy in November now presenting for scheduled ileostomy reversal
AFVSS
Following expected post operative course
Chronic hyponatremia noted, stable
Hypokalemia on am labs, replaced
Mild acute anemia present secondary to hemodilution/expected operative losses. No evidence of acute bleeding
--Clear liquid diet
--OOB/Ambulate
--Multimodal analgesics
--D/C crow for voiding trial
--Replace Kcl
--Change IVF to NSS at 80ml/hr
--Lovenox 40mg SQ qpm for vte ppx
Subjective Data
-
Date of Service: March 13, 2024
Patient seen and examined at bedside with Dr. Awan. Denies n/v. Notes she is very hungry this am. Passing a little flatus. Denies pain. Eager to have crow out.
Objective Data
-
Intake and Output
03/12/24 03/13/24 03/14/24
06:59 06:59 06:59
Intake Total 1900 / 1900
Output Total 885 / 885
Balance 1015 / 1015
Intake:
Oral fluids 600 / 600
IV fluids (Total) 1300 / 1300
Normosol-R 1,000 ml @ 100 mls/ 100 / 100
hr IV .Q10H DOUG Rx#:[id number]
Output:
Urine, Crow 660 / 660
Urine, Voided 225 / 225
Vital Signs
Temp Pulse Resp BP Pulse Ox
97.9 F 81 18 136/62 99
03/13/24 07:25 03/13/24 07:25 03/13/24 07:25 03/13/24 09:39 03/13/24 07:25
Lab Results
03/13/24 07:22
03/13/24 07:22
Calcium 8.3 mg/dl (8.4-10.2) L 03/13/24 07:22
Physical Exam
-
NAD
ABD soft, NT, mildly distended
Incisions well approximated, intact glue, no erythema
[2024-03-13 11:40] VITALS: BP 104/68
--- NOTE | 2024-03-13 13:21 | CM ---
Initial assessment completed with patient who lives with her in a 2 story home with B/B on 2nd and 1/2 bath on 1st, no steps to enter. In house there is a stair glide to 2nd floor, RW and SPC. Patient only uses the stair glide. No in-home
services. CRANKSHAFT STRAIGHTENER was independent and drove. Pharmacy is [facility] in [place] and PCP is Dr. Zandra Brown. Anticipate no needs at discharge.
[2024-03-13 15:30] VITALS: BP 168/59
[2024-03-13] MEDS: NSS 1000 IV (16:49)
[2024-03-13] MEDS: LOVENOX 40 MG SC (16:51)
[2024-03-13 18:04] VITALS: BP 137/56
[2024-03-13] MEDS: LIPITOR 20 MG PO (22:02)
[2024-03-13 23:19] VITALS: BP 122/55
[2024-03-14] MEDS: NSS IV (00:32)
[2024-03-14] MEDS: TYLENOL PO ×2 (00:32→04:16)
[2024-03-14] MEDS: NSS 1000 IV (04:02)
[2024-03-14] MEDS: TORADOL 15 MG IV ×2 (04:04→10:24)
[2024-03-14 06:00] VITALS: BMI 25.1
[2024-03-14 07:25] VITALS: BP 126/45
[2024-03-14] MEDS: INDERAL 20 MG PO (08:30)
[2024-03-14] MEDS: ENTEREG 12 MG PO (08:30)
[2024-03-14] MEDS: TYLENOL 650 MG PO ×2 (08:31→11:47)
[2024-03-14 08:53] LABS: Hematocrit 32.6 % (37.0-47.0); Hemoglobin 11.6 g/dL (12.0-16.0); Mean Corp Hgb Conc. 35.6 g/dL (33.0-37.0); Mean Corpuscular Hgb 29.9 pg (27.0-31.0); Mean Platelet Volume 10.3 fL (7.4-10.4); Platelet Count 201 10^3/uL (130-400); Red Blood Cell Count 3.88 10^6/uL (4.20-5.40); Red Cell Dist. Width 12.9 % (11.5-14.5); White Blood Cell Count 9.2 10^3/uL (4.8-10.8)
[2024-03-14 09:19] LABS: Blood Urea Nitrogen 13 mg/dl (7-17); Calcium 8.5 mg/dl (8.4-10.2); Carbon Dioxide 29 mmol/L (22-30); Chloride 101 mmol/L (98-107); Estimated Creatinine Clearance 65 ml/min; Glucose 116 mg/dl (70-99); Potassium 3.5 mmol/L (3.5-5.1); Sodium 135 mmol/L (135-145); eGFR > 60.00
--- NOTE | 2024-03-14 10:09 | W.PN.GS2 ---
Addendum entered and electronically signed by Kamar Awan MD 03/14/24 10:16:
Patient seen and examined with surgical POISON INFORMATION SPECIALIST. Agree with documented progress note.
Patient doing very well with her postoperative recovery after reversal of ileostomy.
Tolerating liquid diet, full return of GI function, no postoperative pain.
AFVSS
Labs today unremarkable
Abdomen: Soft, nondistended, nontender.
Right sided old ileostomy site dressing removed, Deanne drain removed. There was blood on bandage but no active bleeding. New dressing placed.
A/P: POD #1 status post reversal of ileostomy
Low residue diet
DC home
Discharge instructions and local wound care reviewed with patient.
Original Note:
Today's Communication / Plan
-
Dispo planning
Assessment / Plan
-
78 yo female with h/o colovaginal fistula s/p robotic LAR and diverting ileostomy in November now presenting for scheduled ileostomy reversal
AFVSS
Following expected post operative course
Electrolytes normal after replacement
H/H stable, no leukoctyosis
Tolerating diet with +bm's/flatus
--Advance to LRD
--OOB/Ambulate
--Multimodal analgesics
--D/C IVF
--Lovenox 40mg SQ qpm for vte ppx
Subjective Data
-
Date of Service: March 14, 2024
Patient seen and examined at bedside with Dr. Awan. Denies pain. Tolerating diet with passage of flatus and loose stools. Voiding well.
Objective Data
-
Intake and Output
03/13/24 03/14/24 03/15/24
06:59 06:59 06:59
Intake Total 1900 / 1900 2750 / 2750
Output Total 885 / 885 550 / 550
Balance 1015 / 1015 2200 / 2200
Intake:
Oral fluids 600 / 600 1320 / 1320
IV fluids (Total) 1300 / 1300 1160 / 1160
Normosol-R 1,000 ml @ 100 mls/ 100 / 100
hr IV .Q10H DOUG Rx#:[id number]
IV piggybacks 270 / 270
Output:
Urine, Graham 660 / 660 300 / 300
Urine, Voided 225 / 225 250 / 250
Other:
Number of approximated MODERATE 2
amounts of urine
Number of approximated LARGE 1
amounts of urine
Vital Signs
Temp Pulse Resp BP Pulse Ox
98.1 F 61 18 126/45 97
03/14/24 07:25 03/14/24 07:25 03/14/24 07:25 03/14/24 07:25 03/14/24 07:25
Lab Results
03/14/24 08:35
03/14/24 08:35
Calcium 8.5 mg/dl (8.4-10.2) 03/14/24 08:35
Physical Exam
-
NAD
ABD soft, NT, ND, chronic ventral hernia soft/reducible
Incisions well approximated, intact dilip, no erythema. Deanne removed.
[2024-03-14 11:38] VITALS: BP 145/67
--- NOTE | 2024-03-14 11:56 | W.DCSUMMARY ---
Discharge Summary
Discharge Data
Date of Admission: 03/12/24
Date of Discharge: 03/14/24
-
Pending Results: No
Hospital Course
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 She tolerated the procedure well without complication. Diet was able to be advanced and well
tolerated post operatively with good bowel recovery post operatively. She was discharged to home with family for outpatient follow up. [place] left in place post operatively was removed prior to discharge.
Discharge Plan
-
Patient Disposition: Home (Routine Discharge)
Discharge Diagnosis/Procedures: closure of ileostomy
Condition: Good
Diet: Low Residue
Activity: No strenuous activity
Additional Activity: No lifting over 10lbs (gallon of milk)
Driving Restrictions: No driving for 1 week
Bathing Restrictions: OK to Shower
Wound Care: Abundio will be removed during your follow up appointment with your surgeon. Keep your incision covered with dry gauze pads to absorb any drainage. Ok to remove dressing for showering.
Activity Restrictions/Additional Instructions:
Call your surgeon if you have fevers >100.5, nausea with vomiting or worsening abdominal pain
Instructions: Low Fiber Diet
Referrals:
Jimmy Tong MD [Active] - in two weeks
Zandra Brown MD [Family Provider] -
Additional Discharge Medication Instructions: Take over the counter Tylenol and Aleve as directed on packaging for mild to moderate pain. Tramadol for breakthrough or severe pain.
Prescriptions:
Continued
potassium chloride [Klor-Con] 20 mEq Packet
20 meq PO DAILY
midodrine 2.5 mg Tablet
2.5 mg PO PRN PRN (Reason: low blood pressure)
propranolol 20 mg Tablet
20 mg PO BID
cholecalciferol (vitamin D3) [Vitamin D3] 50 mcg (2,000 unit) Tablet
4,000 unit PO DAILY
magnesium oxide 400 mg magnesium Tablet
400 mg PO DAILY
atorvastatin 20 mg Tablet
20 mg PO HS
Discharge Orders:
Discharge Patient (As Directed); Ordered 03/14/24
Ordered By: Yana Ruiz
Discharge Date and Time
Print Language: SERBIAN
== END 2024-03-14 12:35 | disposition home or self-care (01) | DRG 331 ==
LOC: 2 SOUTH 08:00
PROVIDERS: Registered Nurse; ADMITTING PHYSICIAN Surgery; FAMILY PHYSICIAN Family Medicine
PROC: 0WQF0ZZ Repair Abdominal Wall, Open Approach (ICD-10-PCS; 2024-03-12)
PROC: 0DBB0ZZ Excision of Ileum, Open Approach (ICD-10-PCS; 2024-03-12)
DX: Z43.2 Encounter for attention to ileostomy (principal); K43.5 Parastomal hernia without obstruction or gangrene; Z87.19 Personal history of other diseases of the digestive system; Z90.49 Acquired absence of other specified parts of digestive tract
CPT/HCPCS: 36415; 80048; 85025; 85027; 93005; A4648; J1335

== ENCOUNTER 2024-11-01 06:07 | Inpatient (IN) | payer OTHER, SELFPAY ==
[2024-10-25 10:31] VITALS: BMI 29.1
[2024-10-25 11:18] LABS: Hematocrit 34.7 % (37.0-47.0); Hemoglobin 11.5 g/dL (12.0-16.0); Mean Corp Hgb Conc. 33.1 g/dL (33.0-37.0); Mean Corpuscular Hgb 26.9 pg (27.0-31.0); Mean Corpuscular Volume 81.3 fL (81.0-99.0); Mean Platelet Volume 10.7 fL (7.4-10.4); Platelet Count 259 10^3/uL (130-400); Red Blood Cell Count 4.27 10^6/uL (4.20-5.40); Red Cell Dist. Width 14.6 % (11.5-14.5); White Blood Cell Count 10.4 10^3/uL (4.8-10.8)
[2024-10-25 11:42] LABS: Blood Urea Nitrogen 11 mg/dl (7-17); Calcium 9.2 mg/dl (8.4-10.2); Carbon Dioxide 27 mmol/L (22-30); Chloride 93 mmol/L (98-107); Estimated Creatinine Clearance 70 ml/min; Glucose 102 mg/dl (70-99); Potassium 4.1 mmol/L (3.5-5.1); Sodium 128 mmol/L (135-145); eGFR > 60.00
--- NOTE | 2024-10-25 15:47 | PTCARENOTE ---
Patient 10/25 delores Martin @ Dr. Schaffer office
--- NOTE | 2024-10-26 16:37 | PTCARENOTE ---
Abnormal Na 128 from 10/25/24, reported to Dr Li, no further interventions requested.
[2024-11-01] VITALS (18 sets, daily range): BP systolic 0–184; BP diastolic 69–164; BMI 29.1
[2024-11-01 06:35] LABS: Glucose - Point of Care 116 mg/dl (70-99)
--- NOTE | 2024-11-01 06:44 | HP.FOC2 ---
Focused History & Physical
Chief Complaint
HPI:
Chief Complaint: Incisional hernia
HPI / Indication for Planned Procedure: Patient is an 78-year-old female with a past abdominal surgical history notable for robotic sigmoid/KEIRA, pelvic floor reconstruction with palpable mesh sling, open cholecystectomy, appendectomy, ovarian
cystectomy, diverting loop ileostomy, low anterior resection with intracorporeal anastomosis, closure of her loop ileostomy.
Large midline laparotomy incisional hernia. She presents today for scheduled operative correction.
Relevant Past Medical History: Other (Migraine headaches, hypercholesterolemia, high blood pressure, diverticulitis, history of PE, hyponatremia)
Relevant Social History: Negative
Relevant Family History: Negative
Relevant Past Surgical History: Positive for (As per HPI)
Review of Systems
Review of Pertinent Systems: All Systems Negative
Medication
See Medication form for detailed medications: Yes
Medication List (including Herbals & OTC):
cholecalciferol (vitamin D3) 50 mcg (2,000 unit) tablet (Vitamin D3) 4,000 unit PO DAILY Supplement 03/20/23
magnesium oxide 400 mg PO DAILY Supplement 03/20/23
potassium chloride 20 mEq oral packet (Klor-Con) 20 meq PO DAILY Electrolyte Repletion 03/20/23
propranolol 20 mg tablet 20 mg PO BID Blood Pressure 03/20/23
atorvastatin 20 mg tablet 20 mg PO HS High Cholesterol 11/24/23
metformin 500 mg tablet 500 mg PO BID 10/25/24
triamterene 75 mg-hydrochlorothiazide 50 mg tablet 1 tab PO DAILY 10/25/24
losartan 25 mg tablet 25 mg PO DAILY 11/01/24
Medications Reviewed: Yes
Allergies and Reactions
Patient has Allergies: Yes
Noted Allergies and Reactions:
Allergy/AdvReac Type Severity Reaction Status Date / Time
metronidazole [From Flagyl] Allergy Nausea / Verified 11/01/24 06:17
Vomiting
pollen extracts Allergy sneezing Verified 11/01/24 06:17
and
congestion
sulfamethoxazole Allergy Nausea / Verified 11/01/24 06:17
[From Bactrim] Vomiting
trimethoprim [From Bactrim] Allergy Nausea / Verified 11/01/24 06:17
Vomiting
Pertinent Physical Exam
All Other Systems: Negative
Head/Neck: Normal
Lungs: Normal
Heart: Normal
Abdomen: Other (Large midline abdominal hernia, multiple well-healed prior surgical scars. No open wounds.)
Extremities: Normal
Neurological: Normal
Diagnosis / Assessment
78-year-old female presenting for scheduled operative correction complex abdominal wall hernia
Plan / Procedure
Robotic assisted laparoscopic/open repair incisional hernias with mesh; bilateral component separation (TAR)
Anesthesia/Sedation to be done by Anesthesia Provider: Yes
--- NOTE | 2024-11-01 06:48 | W.SUR.PREOP ---
Pre-Operative Surgical Note
-
I have examined this patient prior to the performance of the scheduled procedure.
The patient's condition is unchanged from the time of the current History and
Physical and the patient is able to undergo the scheduled procedure.
[2024-11-01] MEDS: TYLENOL 1000 MG PO (06:52)
[2024-11-01] MEDS: ENTEREG 12 MG PO (06:52)
[2024-11-01] MEDS: NORMOSOL-R/PLASMALYTE-A 1000 IV (06:53)
[2024-11-01] MEDS: HEPARIN 5000 UNITS SC (07:03)
[2024-11-01 16:50] LABS: Glucose - Point of Care 157 mg/dl (70-99)
--- NOTE | 2024-11-01 16:55 | W.IMMPOSTOP ---
Addendum entered and electronically signed by Kamar Awan MD 11/01/24 17:43:
[id number]
Original Note:
Surgical Immed Post Op Note
-
Primary Surgeon: Kamar Awan MD
Assisting Surgeon: Edilma GREEN
Ellyn EDWARD-S
Pre-op Diagnosis: Complex abdominal wall incisional hernia
Post-op Diagnosis: Complex abdominal wall incisional hernias -total length encompassing 17 cm [midline incisional hernia 12.5 cm x 10 cm; right lower quadrant old ostomy site incisional hernia 4.5 cm x 2 cm]
Procedure Performed: Robotic assisted laparoscopic bilateral transversus abdominis myofascial release
Hybrid robotic assisted laparoscopic/open retromuscular sublay mesh repair incisional hernias with fascial closure.
Removal excessive skin/subcutaneous tissues associated with hernia sac
Anesthesia Type: GETA +0.25% Marcaine with epi (30 mL at initiation of procedure -20 mL fascial block at the conclusion)
Specimen / Cultures: None
Estimated Blood Loss: 76 mL
Complications: None immediate
Drains: LLQ -retrorectus
RLQ -midline subcutaneous
Operative Findings:
Large complex abdominal wall incisional hernia at midline measuring approximately 12.5 cm vertically x 10 cm wide and additional right lower quadrant old ostomy site incisional hernia spanning 4.5 cm vertically and 2 cm wide.
Single small bowel area of adhesion to hernia sacs and few interloop adhesions lysed. Pelvic adhesions left alone.
Robotic assisted laparoscopic bilateral transversus abdominis myofascial release (TAR) -increased complexity of right sided myofascial release due to presence of right lower quadrant old ostomy site incisional hernia and right subcostal Michele
incision scar from prior open cholecystectomy which resulted in significant scarring of the typical retrorectus/posterior sheath and pre-transversalis/transversalis tissue layers.
Due to large subcutaneous space from complex abdominal wall hernia subsequently converted to planned open approach for abdominal wall closure and mesh placement.
Posterior sheath and peritoneum/visceral sac closed with combination of 2-0 PDS stratafix spiral and 2-0 Vicryl sutures for complete closure of the visceral sac.
Retromuscular sublay mesh placement -subxiphoid to pubis extending subcostal bilaterally and well onto the lateral abdominal wall with 30.5 x 30.5 cm Bard soft mesh used in its entirety
Closure of linea alba at midline as well as right lower quadrant old ostomy site with #1 PDS stratafix symmetric sutures
Excessive/thinned out dermis where hernia sac was essentially fused to dermis and immediately adjacent redundant subcutaneous tissues/hernia sac excised. Multilayer subcutaneous closure. 2-0 Vicryl Ash's, 3-0 Vicryl deep dermal and skin closure
with stapler.
Emmanuel dressing applied to large midline incision
Patient's updated postoperatively via phone call.
[2024-11-01] MEDS: ZOFRAN 4 MG IV ×2 (17:43→19:42)
[2024-11-01] MEDS: DILAUDID 0.25 MG IV (18:05)
[2024-11-01] MEDS: NSS 1000 IV (18:35)
--- NOTE | 2024-11-01 19:05 | PTCARENOTE ---
Pt arrived from pacu, all dressings c/d/i, vitals stable, at bedside. RN called pharmacy to tube IV Tylenol to 2 south
[2024-11-01] MEDS: OFIRMEV 100 IV ×2 (19:38→23:56)
[2024-11-01] MEDS: DILAUDID 0.5 MG IV ×2 (19:42→23:57)
[2024-11-01 21:51] LABS: Glucose - Point of Care 103 mg/dl (70-99)
[2024-11-02 03:52] VITALS: BP 142/73
[2024-11-02] MEDS: NSS 1000 IV ×2 (04:13→15:21)
[2024-11-02] MEDS: DILAUDID 0.5 MG IV ×2 (04:25→21:16)
[2024-11-02 06:00] LABS: Glucose - Point of Care 126 mg/dl (70-99)
[2024-11-02] MEDS: OFIRMEV 100 IV (06:15)
[2024-11-02 06:58] LABS: Hematocrit 32.1 % (37.0-47.0); Hemoglobin 10.4 g/dL (12.0-16.0); Mean Corp Hgb Conc. 32.4 g/dL (33.0-37.0); Mean Corpuscular Hgb 27.4 pg (27.0-31.0); Mean Corpuscular Volume 84.5 fL (81.0-99.0); Mean Platelet Volume 10.1 fL (7.4-10.4); Platelet Count 245 10^3/uL (130-400); White Blood Cell Count 11.8 10^3/uL (4.8-10.8)
--- NOTE | 2024-11-02 07:13 | W.PN.GS2 ---
Today's Communication / Plan
-
`
Assessment / Plan
-
Assessment: 78 y/o female POD#1 s/p RAL b/l TAR and hybrid RAL/open retromuscular sublay repair complex incisional hernias with mesh
h/o HTN, DM II, PE february 2023, chronic hyponatremia, chronic anemia
acute anemia d/t expected surgical blood loss/dilutional - hgb 10.4 (11.5 preop)
JPs with expected character and quantity - left retromuscular drain with larger amounts but plastics heat welder SSF
hypokalemia 3.4 - replace
Plan: multimodal pain control options - pending AM labs will potentially start toradol
clear liquid diet for comfort
renew IVFs; K rider IV
SSI while off metformin
home BP medications
OOBTC/ambulate as able, encourage IS use
crow until POD#2 or ambulating comfortably
PT eval
abd binder for comfort/okay to leave off as well
SCDs/heparin for VTEp
Subjective Data
-
Date of Service: November 02, 2024
pt seen and examined
post op pain present; right side more than left. states adequately controlled with dilaudid
mild nausea yesterday evening - better after zofran
offers no additional specific concerns
Objective Data
-
Intake and Output
11/01/24 11/02/24 11/03/24
06:59 06:59 06:59
Intake Total 100 / 100
Output Total 1218 / 1218
Balance -1118 / -1118
Intake:
IV fluids (Total) 100 / 100
normosol 100 / 100
Output:
Drain Output (Total) 93 / 93
Left Lower Abdomen Tamir- 90 / 90
Cuevas
Right Lower Abdomen Tamir- 3 /
Cuevas
Urine, Crow 1000 / 1000
Urine, Voided 125 / 125
Vital Signs
Temp Pulse Resp BP Pulse Ox
97.7 F 81 16 142/73 95
11/02/24 03:52 11/02/24 03:52 11/02/24 03:52 11/02/24 03:52 11/02/24 03:52
Lab Results
11/02/24 06:14
Calcium Cancelled 11/01/24 06:46
Physical Exam
-
NAD AAOx3
ABD: soft, ND, expected tenderness
robo sites with glue dressings
MILENA L/R with SSF - left plastics heat welder than right side
ERA dressing in place and holding suction
Patient has a crow catheter: Yes
[2024-11-02 07:23] LABS: Blood Urea Nitrogen 10 mg/dl (7-17); Calcium 7.9 mg/dl (8.4-10.2); Carbon Dioxide 25 mmol/L (22-30); Chloride 103 mmol/L (98-107); Estimated Creatinine Clearance 70 ml/min; Glucose 130 mg/dl (70-99); Potassium 3.4 mmol/L (3.5-5.1); Sodium 136 mmol/L (135-145); eGFR > 60.00
[2024-11-02 07:30] VITALS: BP 134/89
[2024-11-02] MEDS: INDERAL 20 MG PO (08:29)
[2024-11-02] MEDS: KCL 160 MEQ IV (08:30)
[2024-11-02] MEDS: TORADOL 10 MG PO ×2 (08:30→15:20)
[2024-11-02] MEDS: ENTEREG 12 MG PO (08:31)
[2024-11-02] MEDS: HEPARIN 5000 UNITS SC (08:31)
[2024-11-02] MEDS: COZAAR 25 MG PO (08:31)
[2024-11-02] MEDS: PROTONIX IV 40 MG IV (08:32)
[2024-11-02] MEDS: NSS (PRESERVATIVE FREE) 10 ML IV (08:33)
[2024-11-02] MEDS: DILAUDID 0.25 MG IV ×2 (08:42→12:54)
--- NOTE | 2024-11-02 09:54 | CM ---
Reviewed the chart notes and spoke with the patient at the bedside. The patient resides with her spouse in a two story home with no steps to enter. The patient has a stair glide which she does use and the other DME in home is needed is a rolling
walker and cane. The patient has had [facility] in the past and been to [facility] in the past. The patient confirmed her pharmacy of choice is the [facility]. CM continues to be available to patient/family and is monitoring
medical plan for needs at discharge.
Plan: Discharge plans will depend on the patient's progress. PT evaluation pending. Patient with two MILENA drains.
[2024-11-02 11:25] VITALS: BP 164/72
[2024-11-02 12:13] LABS: Glucose - Point of Care 140 mg/dl (70-99)
[2024-11-02 15:35] VITALS: BP 169/71
[2024-11-02] MEDS: ZOFRAN 4 MG IV (16:44)
[2024-11-02 16:55] LABS: Glucose - Point of Care 121 mg/dl (70-99)
[2024-11-02] MEDS: LIDOCAINE 4% PATCH 1 PATCH TOPICAL (20:22)
[2024-11-02] MEDS: MYLICON 80 MG PO (21:13)
[2024-11-02] MEDS: COMPAZINE 5 MG PO (21:13)
[2024-11-02 21:27] LABS: Glucose - Point of Care 131 mg/dl (70-99)
[2024-11-02] MEDS: INDERAL PO (22:57)
[2024-11-02] MEDS: ENTEREG PO (22:57)
[2024-11-02] MEDS: HEPARIN SC (22:57)
[2024-11-02] MEDS: TORADOL PO (22:58)
[2024-11-02 23:22] VITALS: BP 169/93
[2024-11-03] MEDS: TORADOL 10 MG PO (00:24)
[2024-11-03] MEDS: NSS 1000 IV ×3 (01:22→17:45)
[2024-11-03] MEDS: DILAUDID 0.5 MG IV (01:40)
[2024-11-03] MEDS: ZOFRAN 4 MG IV ×2 (01:51→10:40)
[2024-11-03] MEDS: MYLICON 80 MG PO (05:30)
[2024-11-03] MEDS: COMPAZINE 5 MG IV ×3 (05:34→19:56)
--- NOTE | 2024-11-03 07:19 | W.PN.GS2 ---
Today's Communication / Plan
-
`
Assessment / Plan
-
Assessment: 78 y/o female POD#2 s/p RAL b/l TAR and hybrid RAL/open retromuscular sublay repair complex incisional hernias with mesh
h/o HTN, DM II, PE February 2023, chronic hyponatremia, chronic anemia
acute anemia d/t expected surgical blood loss/dilutional - hgb 10.4 - pending today (11.5 preop)
JPs with expected character and quantity - smoking pipe mounter SSF
AM labs pending
no signs of post op GI recovery yet
Plan: multimodal pain control options --change toradol to IV
Compazine added as Zofran alternative; simethicone PRN
clear liquid diet -only sips for comfort until nausea resolved
renew IVFs
SSI while off metformin
home BP medications - elevated BP likely d/t pain/nausea - monitor
OOBTC/ambulate as able/PT encourage IS use
crow removed
abd binder for comfort/okay to leave off as well
continue JPs and initial ERA dressing to remains in place and holding seal well
SCDs/heparin for VTEp
Subjective Data
-
Date of Service: November 03, 2024
pt seen and examined
worse nausea but no vomiting
no flatus; belching on occasion
pain control not the best over the last 24hrs - incisional and sub costal as well as lower back from bed
Compazine worked better for nausea
Objective Data
-
Intake and Output
11/02/24 11/03/24 11/04/24
06:59 06:59 06:59
Intake Total 100 / 100 1859
Output Total 1218 / 1218 2595 / 2595
Balance -1118 / -1118 -735 / -735
Intake:
Oral fluids 1859
IV fluids (Total) 100 / 100 0 / 0
normosol 100 / 100
IV piggybacks 0 / 0
Output:
Drain Output (Total) 195 / 195
Left Lower Abdomen Tamir- 135 / 135
Cuevas
Right Lower Abdomen Tamir- 3 / 3 60 / 60
Cuevas
Urine, Crow 1000 / 1000 2400 / 2400
Urine, Voided 125 / 125
Vital Signs
Temp Pulse Resp BP Pulse Ox
98.9 F 100 18 169/93 95
11/02/24 23:22 11/02/24 23:22 11/02/24 23:22 11/02/24 23:22 11/02/24 23:22
Calcium 7.9 mg/dl (8.4-10.2) L 11/02/24 06:14
Physical Exam
-
NAD AAOx3, lying in hospital bed
ABD: soft, ND-not tense or rigid. generalized TTP, no R/R/R
midline incision with ERA dressing
JPs with smoking pipe mounter SSF - changed dressing some leakage from drain sites - expected
Patient has a crow catheter: No
[2024-11-03 07:30] VITALS: BP 161/79
[2024-11-03 07:34] LABS: Glucose - Point of Care 124 mg/dl (70-99)
[2024-11-03 07:37] LABS: Hematocrit 29.6 % (37.0-47.0); Hemoglobin 9.8 g/dL (12.0-16.0); Mean Corp Hgb Conc. 33.1 g/dL (33.0-37.0); Mean Corpuscular Hgb 27.1 pg (27.0-31.0); Mean Corpuscular Volume 81.8 fL (81.0-99.0); Platelet Count 245 10^3/uL (130-400); Red Blood Cell Count 3.62 10^6/uL (4.20-5.40); Red Cell Dist. Width 14.8 % (11.5-14.5); White Blood Cell Count 12.3 10^3/uL (4.8-10.8)
[2024-11-03 08:54] LABS: Blood Urea Nitrogen 7 mg/dl (7-17); Calcium 8.6 mg/dl (8.4-10.2); Carbon Dioxide 22 mmol/L (22-30); Chloride 96 mmol/L (98-107); Estimated Creatinine Clearance 70 ml/min; Glucose 117 mg/dl (70-99); Potassium 3.4 mmol/L (3.5-5.1); Sodium 131 mmol/L (135-145); eGFR > 60.00
--- NOTE | 2024-11-03 09:09 | CM ---
Reviewed the chart notes. Patient remains on clear liquid diet. Abdominal MILENA drains remain. PT evaluation pending. CM continues to be available to patient/family and is monitoring medical plan for needs at discharge.
Plan: Discharge plans will depend on the patient's progress.
[2024-11-03] MEDS: NSS (PRESERVATIVE FREE) 10 ML IV (09:19)
[2024-11-03] MEDS: PROTONIX IV 40 MG IV (09:19)
[2024-11-03] MEDS: COZAAR 25 MG PO (09:19)
[2024-11-03] MEDS: TORADOL 10 MG IV ×3 (09:20→19:57)
[2024-11-03] MEDS: INDERAL 20 MG PO ×2 (09:20→19:57)
[2024-11-03] MEDS: HEPARIN 5000 UNITS SC (09:20)
[2024-11-03] MEDS: ENTEREG PO ×2 (09:24→19:57)
[2024-11-03] MEDS: KCL 270 MEQ IV (10:15)
[2024-11-03 11:54] LABS: Glucose - Point of Care 113 mg/dl (70-99)
[2024-11-03 13:05] VITALS: BP 144/59; BP 179/75; PULSE 76; O2SAT 97
[2024-11-03 15:46] VITALS: BP 161/59
[2024-11-03] MEDS: LOVENOX 40 MG SC (17:44)
[2024-11-03 17:48] LABS: Glucose - Point of Care 111 mg/dl (70-99)
[2024-11-03 19:45] VITALS: BP 158/58
[2024-11-03 22:11] LABS: Glucose - Point of Care 102 mg/dl (70-99)
[2024-11-03 23:20] VITALS: BP 129/47
[2024-11-04] MEDS: NSS 1000 IV (02:12)
[2024-11-04] MEDS: TORADOL 10 MG IV ×4 (02:12→19:25)
[2024-11-04 06:30] LABS: Hemoglobin 8.4 g/dL (12.0-16.0); Mean Corp Hgb Conc. 32.3 g/dL (33.0-37.0); Mean Corpuscular Hgb 27.3 pg (27.0-31.0); Mean Corpuscular Volume 84.4 fL (81.0-99.0); Mean Platelet Volume 10.4 fL (7.4-10.4); Platelet Count 215 10^3/uL (130-400); Red Blood Cell Count 3.08 10^6/uL (4.20-5.40); Red Cell Dist. Width 14.6 % (11.5-14.5); White Blood Cell Count 9.8 10^3/uL (4.8-10.8)
[2024-11-04 06:56] LABS: Blood Urea Nitrogen 6 mg/dl (7-17); Calcium 8.1 mg/dl (8.4-10.2); Carbon Dioxide 23 mmol/L (22-30); Chloride 100 mmol/L (98-107); Estimated Creatinine Clearance 70 ml/min; Glucose 69 mg/dl (70-99); Potassium 2.8 mmol/L (3.5-5.1); Sodium 134 mmol/L (135-145); eGFR > 60.00
[2024-11-04 07:47] VITALS: BP 152/62
[2024-11-04 07:54] LABS: Glucose - Point of Care 85 mg/dl (70-99)
[2024-11-04] MEDS: ENTEREG PO (08:04)
[2024-11-04] MEDS: COZAAR 25 MG PO (08:07)
[2024-11-04] MEDS: PROTONIX IV 40 MG IV (08:08)
[2024-11-04] MEDS: INDERAL 20 MG PO ×2 (08:08→19:24)
[2024-11-04] MEDS: NSS (PRESERVATIVE FREE) 10 ML IV (08:08)
[2024-11-04] MEDS: KCL 20 MEQ PO (08:52)
[2024-11-04] MEDS: KCL 270 MEQ IV (08:52)
[2024-11-04 09:27] LABS: Magnesium 1.2 mg/dl (1.6-2.3); Phosphorus 2.3 mg/dl (2.5-4.5)
--- NOTE | 2024-11-04 09:32 | W.PN.GS2 ---
Addendum entered and electronically signed by Kamar Awan MD 11/04/24 10:43:
Patient seen and examined this a.m. with surgical PRODUCTION POTTER. Agree with documented progress note.
States that she is feeling much better today and feels like she has turned the corner. Pain significantly improved. Breathing comfortably.
Ambulating well. Passing flatus and had loose bowel movements.
AF VSS
NAD AAOx3
ABD: Soft, nondistended, mild incisional tenderness. No rebound rigidity or guarding.
ERA dressing in place covering midline incision; JPs with light serosanguineous fluid
A/P: POD #3 status post RAL BL TAR and hybrid RAL/open incisional hernia repair with mesh
Hypomagnesemia, hypophosphatemia and hypokalemia noted -replacement and repeat labs in p.m.
Hemoglobin 8.4 -no signs of bleeding -likely reflective of further equilibration postop -repeat in p.m.
Low residue diet
Probable DC in 24 hours, reassess tomorrow regarding possible removal of drains and changing era dressing prior to discharge.
Original Note:
Today's Communication / Plan
-
Replace electrolytes
Advance diet
Assessment / Plan
-
Assessment: 78 y/o female POD#3 s/p RAL b/l TAR and hybrid RAL/open retromuscular sublay repair complex incisional hernias with mesh
h/o HTN, DM II, PE February 2023, chronic hyponatremia, chronic anemia
Afebrile, hypertension improved
acute anemia d/t expected surgical blood loss/dilutional - hgb trending down
JPs with expected character and quantity - ingot header SSF
Acute on chronic hypokalemia and hypomagnesemia in setting of long NPO and GI losses, off regular PO dosage since surgery
Hypophosphatemia secondary to above
Hyponatremia stable, improved
Evidence of GI recovery with +flatus/stools and no nausea/vomiting
Plan: multimodal pain control options
analgesics if needed
advance to LRD
d/c IVF
SSI while off metformin, will resume once tolerating good PO intake
home BP medications
replace electrolytes by IV and resume home PO dosages
OOBTC/ambulate as able/PT encourage IS use
abd binder for comfort/okay to leave off as well
continue JPs and initial ERA dressing to remains in place and holding seal well
repeat K and H/H this afternoon
SCDs/lovenox for VTEp
Subjective Data
-
Date of Service: November 04, 2024
Patient seen and examined at bedside with Dr. Awan. Denies n/v. Passing loose stools now. Appetite returning, would like to try toast. Minimal pain, some tightness. voiding well.
Objective Data
-
Intake and Output
11/03/24 11/04/24 11/05/24
06:59 06:59 06:59
Intake Total 1860 / 1860 1560 / 1560
Output Total 2595 / 2595 420 / 420
Balance -735 / -735 1140 / 1140
Intake:
Oral fluids 1860 / 1860 360 / 360
IV fluids (Total) 0 / 0 1200 / 1200
IV piggybacks 0 / 0
Output:
Drain Output (Total) 195 / 195 120 / 120
Left Lower Abdomen Tamir- 135 / 135 80 / 80
Cuevas
Right Lower Abdomen Tamir- 60 / 60 40 / 40
Cuevas
Urine, Crow 2400 / 2400
Urine, Voided 300 / 300
Other:
Number of approximated MODERATE 2
amounts of urine
Vital Signs
Temp Pulse Resp BP Pulse Ox
98.5 F 98 18 152/62 98
11/04/24 07:47 11/04/24 08:08 11/04/24 07:47 11/04/24 08:08 11/04/24 07:47
Calcium 8.1 mg/dl (8.4-10.2) L 11/04/24 05:43
Phosphorus 2.3 mg/dl (2.5-4.5) L 11/04/24 05:43
Magnesium 1.2 mg/dl (1.6-2.3) L 11/04/24 05:43
Physical Exam
-
NAD AAOx3, lying in hospital bed
ABD: soft, ND. NT, no R/R/R
midline incision with ERA dressing
JPs with ingot header SSF - changed dressing some leakage from drain sites - expected
Patient has a crow catheter: No
[2024-11-04] MEDS: MAGNESIUM SULFATE 100 IV (10:20)
--- NOTE | 2024-11-04 10:53 | CM ---
Addendum entered by Echo Montgomery RN 11/04/24 16:01:
IMM reviewed and p,laced on chart.
Original Note:
Reviewed the chart notes and spoke with the patient at the bedside. Patient's diet now LRD. Patient anticipates being discharged tomorrow morning. CM continues to be available to patient/family and is monitoring medical plan for needs at
discharge.
Plan: Discharge to home when medically stable. Patient still with two MILENA drains. Per note, possible removal at discharge. If drains remain at discharge patient would need VN services.
[2024-11-04 12:26] LABS: Glucose - Point of Care 107 mg/dl (70-99)
[2024-11-04 14:06] LABS: Hematocrit 28.7 % (37.0-47.0); Hemoglobin 9.6 g/dL (12.0-16.0)
[2024-11-04 14:29] LABS: Potassium 3.8 mmol/L (3.5-5.1)
[2024-11-04 15:27] VITALS: BP 95/55
[2024-11-04 17:04] LABS: Glucose - Point of Care 119 mg/dl (70-99)
[2024-11-04] MEDS: LOVENOX 40 MG SC (17:13)
[2024-11-04] MEDS: TYLENOL 1000 MG PO (19:24)
[2024-11-04 22:15] LABS: Glucose - Point of Care 130 mg/dl (70-99)
[2024-11-04 23:20] VITALS: BP 99/58
[2024-11-04] MEDS: ROXICODONE 5 MG PO (23:30)
[2024-11-05] MEDS: TORADOL 10 MG IV (02:56)
[2024-11-05 07:10] VITALS: BP 161/67
[2024-11-05 07:46] LABS: Glucose - Point of Care 124 mg/dl (70-99)
[2024-11-05 07:51] LABS: % Basophils 0.3 % (0-2); % Eosinophils 2.8 % (0-6); % Immature Granulocytes 0.6 % (0-0.5); % Lymphocytes 10.6 % (20.5-51.1); % Monocytes 5.4 % (1.7-9.3); % Neutrophils 80.3 % (42.2-75.2); Absolute Eosinophils 0.2 10^3/uL (0-0.7); Absolute Immature Granulocytes 0.1 10^3/uL (0-0.05); Absolute Lymphocytes 0.8 10^3/uL (1.2-3.4); Absolute Monocytes 0.4 10^3/uL (0.1-0.6); Absolute Neutrophils 6.3 10^3/uL (1.4-6.5); Hematocrit 25.5 % (37.0-47.0); Hemoglobin 8.7 g/dL (12.0-16.0); Mean Corp Hgb Conc. 34.1 g/dL (33.0-37.0); Mean Corpuscular Hgb 27.4 pg (27.0-31.0); Mean Corpuscular Volume 80.2 fL (81.0-99.0); Mean Platelet Volume 10.7 fL (7.4-10.4); Nucleated Red Blood Cells % 0 %; Platelet Count 212 10^3/uL (130-400); Red Blood Cell Count 3.18 10^6/uL (4.20-5.40); Red Cell Dist. Width 14.7 % (11.5-14.5); White Blood Cell Count 7.8 10^3/uL (4.8-10.8)
[2024-11-05 08:25] LABS: Blood Urea Nitrogen 8 mg/dl (7-17); Calcium 8.2 mg/dl (8.4-10.2); Carbon Dioxide 26 mmol/L (22-30); Chloride 98 mmol/L (98-107); Estimated Creatinine Clearance 70 ml/min; Glucose 100 mg/dl (70-99); Magnesium 1.4 mg/dl (1.6-2.3); Phosphorus 2.7 mg/dl (2.5-4.5); Sodium 133 mmol/L (135-145); eGFR > 60.00
[2024-11-05] MEDS: KCL 20 MEQ PO (08:47)
[2024-11-05] MEDS: MAGNESIUM OXIDE 500 MG PO (08:47)
[2024-11-05] MEDS: COZAAR 25 MG PO (08:47)
[2024-11-05] MEDS: INDERAL 20 MG PO (08:47)
[2024-11-05] MEDS: MAGNESIUM SULFATE 100 IV (08:49)
[2024-11-05] MEDS: POTASSIUM PHOSPHATE 259.0909 MEQ IV (08:51)
[2024-11-05 09:50] VITALS: BP 172/70; PULSE 75; O2SAT 96
[2024-11-05 11:51] LABS: Glucose - Point of Care 132 mg/dl (70-99)
--- NOTE | 2024-11-05 11:55 | W.PN.GS2 ---
Addendum entered and electronically signed by Kamar Awan MD 11/05/24 15:04:
Patient seen and examined this afternoon with surgical BEAN SNIPPER.
Agree with documented progress note.
Continues to feel well. No narcotic use during the day today.
Tolerating regular diet, bowels moving yesterday.
AFVSS
NAD AAOx3
ABD: Soft, mild tenderness, no rebound rigidity or guarding.
JPs removed
Era dressing removed midline incision in place with dilip. No erythema, no drainage, no ecchymosis.
A/P: POD #4 status post RAL TAR and hybrid RAL/open repair of complex incisional hernia with mesh
Stable for discharge home
Continue to take electrolyte replacement at home with magnesium oxide and potassium chloride as was on prior to surgery
Original Note:
Today's Communication / Plan
-
dispo planning
Assessment / Plan
-
Assessment: 78 y/o female POD#4 s/p RAL b/l TAR and hybrid RAL/open retromuscular sublay repair complex incisional hernias with mesh
h/o HTN, DM II, PE February 2023, chronic hyponatremia, chronic anemia
Afebrile, hypertension improved, BP intermittently low
acute anemia d/t expected surgical blood loss/dilutional - relatively stable
JPs with expected character and quantity - workforce management consultant SSF
Acute on chronic hypokalemia and hypomagnesemia in setting of long NPO and GI losses
Hyponatremia stable
Good GI recovery with +flatus/stools and no nausea/vomiting
Plan: multimodal pain control options
continue LRD
SSI while off metformin
home BP medications
replace electrolytes by IV resume home PO dosages
OOBTC/ambulate as able/PT encourage IS use
abd binder for comfort/okay to leave off as well
continue JPs and initial ERA dressing to remains in place and holding seal well
SCDs/lovenox for VTEp
Tentative d/c later today
Subjective Data
-
Date of Service: November 05, 2024
Patient seen and examined at bedside. Denies n/v. Tolerating diet. Passing stools/flatus. Pain minimal.
Objective Data
-
Intake and Output
11/04/24 11/05/24 11/06/24
06:59 06:59 06:59
Intake Total 1560 / 1560 2049
Output Total 420 / 420 85 / 85
Balance 1140 / 1140 1965 / 1965
Intake:
Oral fluids 360 / 360 1680 / 1680
IV fluids (Total) 1200 / 1200
IV piggybacks 370 / 370
Output:
Drain Output (Total) 120 / 120 85 / 85
Left Lower Abdomen Tamir- 80 / 80 55 / 55
Cuevas
Right Lower Abdomen Tamir- 40 / 40 30 / 30
Cuevas
Urine, Voided 300 / 300
Other:
Number of approximated SMALL 2
amounts of urine
Number of approximated MODERATE 2 2
amounts of urine
Vital Signs
Temp Pulse Resp BP Pulse Ox
98.3 F 89 20 161/67 98
11/05/24 07:10 11/05/24 07:10 11/05/24 07:10 11/05/24 07:10 11/05/24 07:10
Lab Results
11/05/24 06:21
11/05/24 06:21
Calcium 8.2 mg/dl (8.4-10.2) L 11/05/24 06:21
Phosphorus 2.7 mg/dl (2.5-4.5) 11/05/24 06:21
Magnesium 1.4 mg/dl (1.6-2.3) L 11/05/24 06:21
Physical Exam
-
NAD AAOx3, lying in hospital bed
ABD: soft, ND. NT, no R/R/R
midline incision with ERA dressing
JPs with workforce management consultant SSF
Patient has a crow catheter: No
--- NOTE | 2024-11-05 15:12 | CM ---
Reviewed the chart notes. Patient for discharge. MILENA drains removed. Spouse at bedside to provide transportation home. CM continues to be available to patient/family and is monitoring medical plan for needs at discharge.
Plan: Discharge to home today with no needs.
[2024-11-05 15:21] VITALS: BP 142/79
--- NOTE | 2024-11-05 15:22 | PTCARENOTE ---
abdominal dressing w/ERA drain dressing-era drain machine non-functioning. advised by FIBRE CEMENT MOULDERRandall Inman to removed era drain dressing and place dry dressing for pt comfort. pt and educated on dry dressing application and additional supples
provided. pt and verbalized understanding.
--- NOTE | 2024-11-05 15:39 | W.DCSUMMARY ---
Discharge Summary
Discharge Data
Date of Admission: 11/01/24
Date of Discharge: 11/05/24
-
Pending Results: No
Hospital Course
Ms Humphrey presented for scheduled management of complex abdominal wall incisional hernias with robotic-assisted laparoscopic bilateral transversus abdominis myofascial release and hybrid robotic-assisted laparoscopic/open retromuscular sublay
mesh repair incisional hernias with fascial closure. Removal excessive skin/subcutaneous tissues associated with hernia sac was preformed. MILENA drains placed intraoperatively were removed prior to discharge. ERA dressing removed as well with intact
staple line. She had good return of bowel function post operatively and diet was able to be advanced and well tolerated. Electrolytes were replaced via IV until PO standing doses could be resumed. She had minimal post operative discomfort which was
well controlled with oral agents prior to discharge. She returned home with spouse with outpatient follow up planned in 2 weeks for removal of dilip.
Discharge Plan
-
Patient Disposition: Home (Routine Discharge)
Discharge Diagnosis/Procedures: Robotic assisted laparoscopic bilateral transversus abdominis myofascial release
Hybrid robotic assisted laparoscopic/open retromuscular sublay mesh repair incisional hernias with fascial closure
Removal excessive skin/subcutaneous tissues associated with hernia sac
Condition: Good
Diet: Low Fiber
Activity: No strenuous activity
Additional Activity: Do not lift over 15 lbs for the next 6 weeks. Wear abdominal binder for comfort.
Bathing Restrictions: OK to Shower
Wound Care: Cover the site your drains were located with a clean gauze dressing and tape. Change daily after showering or as needed if soiled. Once drainage no longer present ok to leave open to air with no dressing.
The ERA dressing to your incision will remain in place until you loose suction to the device (it will flash orange) or for 5 more days whichever is first. Gently remove the dressing at that time and apply dry gauze if needed if any drainage is
noted.
Ok to remove from the suction device from your dressing for showers and then reattach and hit the orange button to reset the suction once reconnected.
Activity Restrictions/Additional Instructions:
Call your surgeon if you have a fever >100.5, worsening pain or nausea with vomiting
Referrals:
Kamar Awan MD [Active] - in two weeks
Zandra Brown MD [Family Provider] -
Prescriptions:
New
acetaminophen 325 mg tablet
650 mg PO Q4HPRN PRN (Reason: mild pain) Qty: 1 0RF
ibuprofen 200 mg tablet
400 - 600 mg PO Q6HPRN PRN (Reason: moderate pain) Qty: 1 0RF
oxycodone 5 mg tablet
5 mg PO Q4HPRN PRN (Reason: breakthrough/severe pain) Qty: 10 0RF
Continued
potassium chloride [Klor-Con] 20 mEq Packet
20 meq PO DAILY
propranolol 20 mg Tablet
20 mg PO BID
cholecalciferol (vitamin D3) [Vitamin D3] 50 mcg (2,000 unit) Tablet
4,000 unit PO DAILY
magnesium oxide 400 mg magnesium Tablet
400 mg PO DAILY
atorvastatin 20 mg Tablet
20 mg PO HS
metformin 500 mg Tablet
500 mg PO BID
losartan 25 mg Tablet
25 mg PO DAILY
Discontinued
triamterene-hydrochlorothiazid 75-50 mg tablet
1 tab PO DAILY
Patient Comments:
no longer takes
Discharge Orders:
Discharge Patient (As Directed); Ordered 11/05/24
Ordered By: Yana Ruiz
Discharge Date and Time
Discharge Date/Time: 11/05/24 15:29
Print Language: GREEK
== END 2024-11-05 15:29 | disposition home or self-care (01) | DRG 354 ==
LOC: 2 SOUTH 06:07
PROVIDERS: Registered Nurse; ADMITTING PHYSICIAN Surgery; FAMILY PHYSICIAN Family Medicine
PROC: 0WUF0JZ Supplement Abdominal Wall with Synthetic Substitute, Open Approach (ICD-10-PCS; 2024-11-01)
PROC: 0HB7XZZ Excision of Abdomen Skin, External Approach (ICD-10-PCS; 2024-11-01)
PROC: 0JN83ZZ Release Abdomen Subcutaneous Tissue and Fascia, Percutaneous Approach (ICD-10-PCS; 2024-11-01)
PROC: 8E0W0CZ Robotic Assisted Procedure of Trunk Region, Open Approach (ICD-10-PCS; 2024-11-01)
DX: K43.2 Incisional hernia without obstruction or gangrene (principal); D62 Acute posthemorrhagic anemia; E87.1 Hypo-osmolality and hyponatremia; K66.0 Peritoneal adhesions (postprocedural) (postinfection); L98.7 Excessive and redundant skin and subcutaneous tissue; E11.9 Type 2 diabetes mellitus without complications; I10 Essential (primary) hypertension; E83.42 Hypomagnesemia; Z79.84 Long term (current) use of oral hypoglycemic drugs
CPT/HCPCS: 36415; 80048; 82962; 83735; 84100; 84132; 85014; 85018; 85025; 85027; 97116; 97162; C1781